=== PATIENT | male | born 1955 | race Caucasian/White ===

== ENCOUNTER 2024-05-30 14:09 | Outpatient (CLI) | payer MEDICARE | END 2024-05-30 14:10 | disposition home or self-care (01) | LOC: BICMRI 14:09 | PROVIDERS: ATTEND Family Medicine Sports Medicine | DX: M75.112 Incomplete rotator cuff tear or rupture of left shoulder, not specified as traumatic (principal); S43.432A Superior glenoid labrum lesion of left shoulder, initial encounter; M19.012 Primary osteoarthritis, left shoulder ==

== ENCOUNTER 2025-03-24 09:41 | Outpatient (CLI) | payer MEDICARE ==
[2025-03-24 11:11] LABS: #Basophils 0.04 10x3/uL (0.0-0.2); #Eosinophils 0.12 10x3/uL (0.0-0.7); #Monocytes 0.85 10x3/uL (0.11-0.59); #Neutrophils 3.94 10x3/uL (1.40-6.50); %Basophils 0.6 % (0.0-1.0); %Eosinophils 1.8 % (0.0-10.0); %Lymphocytes 24.5 % (21.0-51.0); %Monocytes 12.9 % (0.0-10.0); %Neutrophils 59.9 % (42.0-75.0); Hematocrit 48.5 % (42.0-52.0); Hemoglobin 16.4 g/dL (14.0-18.0); Mean Corpuscular Hemoglobin 31.1 pg (27.0-31.0); Mean Corpuscular Volume 91.9 fL (78.0-98.0); Platelet Count 238 10x3/uL (130-400); Red Blood Cell (RBC) Count 5.28 mill/uL (4.70-6.10); White Blood Cell (WBC) Count 6.58 10x3/uL (4.8-10.8)
[2025-03-24 11:32] LABS: ALT (SGPT) 25 U/L (Less than 45); AST (SGOT) 25 U/L (11-34); Albumin 3.8 g/dL (3.1-4.5); Alkaline Phosphatase 70 U/L (40-110); Anion Gap 15 mmol/L (10-20); BUN (Urea Nitrogen) 23 mg/dL (8.4-25.7); Bilirubin, Total 1.0 mg/dL (0.3-1.2); Calc. Creatinine Clearance 0 mL/min (70-130); Calcium 9.1 mg/dL (7.8-10.44); Carbon Dioxide 26 mmol/L (23-31); Chloride 106 mmol/L (98-107); Globulin 2.5 g/dL (2.4-3.5); Glucose 98 mg/dL (80-115); Potassium 3.7 mmol/L (3.5-5.1); Sodium 143 mmol/L (136-145)
== END 2025-03-24 09:42 | disposition home or self-care (01) ==
LOC: LABBT 09:41
PROVIDERS: ATTEND Internal Medicine Cardiovascular Disease
DX: Z01.818 Encounter for other preprocedural examination (principal); R06.02 Shortness of breath
CPT/HCPCS: 80053; 85025; 93005; 93010